=== PATIENT | male | born 1985 | race African-American/Black ===

== ENCOUNTER 2017-03-17 19:14 | Emergency (ER) | payer BC ==
[2017-03-17 19:32] VITALS: BP 120/76
[2017-03-17] MEDS ORDERED: Ketorolac 60 MG/2 ML SDV IM ONE (20:24)
[2017-03-17] MEDS ORDERED: Take Home: Acetaminophen/Codeine 300 MG/30 MG, 5 Tab Pack PO ONE (20:45)
--- NOTE | 2017-03-21 08:12 | ER ---
Date of Service: 03/17/2017 SUBJECTIVE: Satish presents emergency room with complaints of pain to his right great toe. The patient states that he has been experiencing pain in that toe intermittently and states that he has been doing and has a previous history of toe injury or injury to the right great toe. He states that he was walking on an uneven surface and twisted his foot and since that time has been complaining of pain to his right great toe. He states that he is not experiencing any fever or chills. No erythema to the toe. PAST MEDICAL HISTORY: None. MEDICATIONS: None. ALLERGIES: No known drug allergies. REVIEW OF SYSTEMS: Denies any numbness or tingling in the extremity. No erythema or edema to the right great toe. PHYSICAL EXAMINATION: General: This is a 31-year-old male patient. No acute distress. Vital Signs: Blood pressure is 120/76, respiratory rate 16, O2 saturations 99%, and pulse rate 76. Skin: Warm, pink, and dry. Musculoskeletal: The patient does have point tenderness to the dorsal aspect of the right great toe. No obvious step-offs or deformity noted. No crepitus noted. Neurovascular: Circulation, sensation, and motor function are all within normal limits in distal portion of the extremity. RADIOGRAPHIC DATA: Radiographs of the right great toe were obtained. There was no evidence of any obvious fracture or dislocation. ASSESSMENT: Acute on chronic right great toe pain. PLAN: The patient was started on Toradol 10 mg with instructions to take one orally every 6 hours as needed for pain, was also given a short course of Tylenol No. 3 with instructions to take one every 6 hours as well. I would like him to follow up in the clinic in the next 10 to 14 days. All questions were answered. MWK: 03/20/2017 06:23:04 MODL: 03/20/2017 11:48:47 /[id number]
== END 2017-03-17 21:00 | disposition home or self-care (01) ==
LOC: SUPCPDRO 19:14 → VM.ED 19:14
DX: M79.674 Pain in right toe(s) (principal); G89.29 Other chronic pain
CPT/HCPCS: 73660; 96372; 99283; A9270; J1885